=== PATIENT | female | born 1980 | race African-American/Black ===

== ENCOUNTER 2022-05-11 11:25 | Outpatient (CLI) | payer OTHER, SELFPAY ==
[2022-05-11 12:00] LABS: Hematocrit 39.6 % (37.0-47.0); Hemoglobin 12.7 g/dL (12.0-15.0); Mean Corpuscular HGB Conc 32.1 g/dl (32-36); Mean Corpuscular Hemoglobin 29.8 pg (26-34); Mean Platelet Volume 10.1 fl (7.4-10.4); Platelet Count Result 187 k/mm3 (150-375); Red Blood Count 4.26 M/mm3 (4.2-5.4); Red Cell Distribution Width 13.2 % (11.5-14.5); White Blood Count 3.8 K/mm3 (4.5-10.0)
[2022-05-11 12:09] LABS: Alanine Aminotransferase 39 U/L (6-35); Albumin Level 4.4 g/dL (3.5-5.1); Alkaline Phosphatase 49 U/L (38-126); Anion Gap 12 mmol/L (8-16); Aspartate Amino Transferase 37 U/L (14-36); Bilirubin,Total 0.5 mg/dL (0.2-1.3); Blood Urea Nitrogen 17 mg/dL (7-17); Calcium 9.5 mg/dL (8.4-10.2); Carbon Dioxide 24 mmol/L (22-30); Chloride 102 mmol/L (98-107); Cholesterol 200 mg/dL (0-200); Estimated Glomerular Filt Rate > 60; Glucose 88 mg/dL (65-110); HDL Direct 67 mg/dL; Potassium 3.9 mmol/L (3.4-5.0); Sodium 138 mmol/L (137-145); Triglycerides 55 mg/dL (<150)
[2022-05-11 12:20] LABS: LDL Cholesterol Direct 105 mg/dL
[2022-05-11 12:39] LABS: Thyroid Stimulating Hormone 0.796 uIU/mL (0.465-4.680)
== END 2022-05-11 11:26 | disposition home or self-care (01) ==
PROVIDERS: PCP Family Medicine; Visit Provider Family Medicine
DX: R63.6 Underweight (principal); Z76.89 Persons encountering health services in other specified circumstances; Z13.220 Encounter for screening for lipoid disorders; R19.5 Other fecal abnormalities
CPT/HCPCS: 36415; 80053; 80061; 84443; 85027; 87045; 87177; 87209; 87427

== ENCOUNTER 2022-07-25 17:29 | Outpatient (CLI) | payer OTHER, SELFPAY ==
--- NOTE | ~2022-07-25 | MM_ITS ---
EXAMINATION: MM screening reagan BI w della HISTORY: Screening TECHNIQUE: Craniocaudal and mediolateral oblique 3-D tomosynthesis images were obtained and synthetic 2-D images were generated. CAD analysis was submitted and interpreted. COMPARISON: No prior mammogram is available for comparison at this institution. BREAST PARENCHYMAL COMPOSITION: The breasts are extremely dense, which lowers the sensitivity of mamm ography. FINDINGS: There is a mass in the upper outer quadrant of the left breast near the nipple with associa jocelyne tissue marker. Per clinical history this was biopsy proven benign. Recommend comparison to previo us mammograms. There is no mammographic evidence for malignancy in the right breast. There are benign bilateral breast calcifications. IMPRESSION: 1. Left breast mass near the nipple with associated tissue marker, likely benign. 2. Recommend comparison to previous outside mammograms. BI-RADS Category 0: Incomplete: Needs additional imaging evaluation. Reviewed, dictated and finalized at location B. TIVE ENGAGEMENT DIRECTOR IMPRESSION: 1. Left breast mass near the nipple with associated tissue marker, likely benig n. 2. Recommend comparison to previous outside mammograms. BI-RADS Category 0: Incomplete: Needs additional imaging evaluation.
== END 2022-07-25 17:30 | disposition home or self-care (01) ==
PROVIDERS: PCP Family Medicine; Visit Provider Family Medicine
DX: Z12.31 Encounter for screening mammogram for malignant neoplasm of breast (principal); R92.8 Other abnormal and inconclusive findings on diagnostic imaging of breast
CPT/HCPCS: 77063; 77067